=== PATIENT | male | born 1990 | race Caucasian/White ===

== ENCOUNTER → 2023-11-12 | Outpatient (REF) | payer OTHER ==
[~2023-11-12] MED LIST: MAGN400C PO; VITAD400CA FT
[2023-11-12 09:14] LABS: SEMEN APPEARANCE OPAQUE (OPAQUE); SEMEN VISCOSITY LIQUID (LIQUID); SEMEN VOLUME 2.9 ml (2.0-5.0); SEMEN pH 8.5 (7.0-8.0); SPERM CONCENTRATION 58.9 M/ml (>=15.0); WBC CONCENTRATION >1 M/ml (<=1 M/ml)
== END ==
LOC: M LAB REF 09:00
PROVIDERS: ATTEND Family Medicine
DX: N46.9 Male infertility, unspecified (principal)